=== PATIENT | male | born 1995 | race African-American/Black ===

== ENCOUNTER 2025-08-29 23:18 | Emergency (ER) | payer BC ==
[~2025-08-29] VITALS: Ht 175.3 cm; Wt 75.0 kg
[2025-08-29 23:28] VITALS: RESP 16; TEMP 97.9; O2SAT 99
[2025-08-30] MEDS: ACETAMINOPHEN 325MG TABLET PO ONE (00:03)
[2025-08-30] MEDS: BACITRACIN 14GM TUBE TOP ONE (00:18)
[2025-08-30] MEDS ORDERED: BO1 TP (00:36)
[2025-08-30] MEDS: TETANUS, DIPHTHERIA, PERTUSSIS VAC/PF 0.5ML (>10YR OLD) IM ONE (01:23)
[2025-08-30 01:25] VITALS: BP 120/78; PULSE 85
== END 2025-08-30 01:26 | disposition home or self-care (01) ==
LOC: ER 23:18
DX: T20.20XA Burn of second degree of head, face, and neck, unspecified site, initial encounter (principal); T22.20XA Burn of second degree of shoulder and upper limb, except wrist and hand, unspecified site, initial encounter; X58.XXXA Exposure to other specified factors, initial encounter; Y93.89 Activity, other specified; Y92.89 Other specified places as the place of occurrence of the external cause; Y99.8 Other external cause status
CPT/HCPCS: 99283